=== PATIENT | male | born 1950 | race Caucasian/White ===

== ENCOUNTER 2018-04-22 19:08 | Outpatient (REF) | payer MEDICARE, SELFPAY ==
[2018-04-22 22:29] LABS: Anion Gap 8.9 mmol/L (3-11); BUN 19 mg/dL (7-18); CO2 28.1 mmol/L (21.0-32.0); CREATININE 1.23 mg/dL (0.70-1.30); Calcium 9.2 mg/dL (8.5-10.1); Chloride 104 mmol/L (98-107); Estimated GFR 59.06 (mL/min/1.73m2); Glucose 89 mg/dL (70-100); Sodium 141 mmol/L (136-145)
== END 2018-04-22 19:28 ==
LOC: NCHCN 19:08
PROVIDERS: PCP Internal Medicine; Visit Provider Family Medicine
DX: I10 Essential (primary) hypertension (principal)
CPT/HCPCS: 80048

== ENCOUNTER 2018-05-19 15:10 | Outpatient (REF) | payer MEDICARE, SELFPAY ==
[2018-05-21 11:00] LABS: PSA, Screening 0.2 ng/ml (0-4.5)
== END 2018-05-19 15:30 ==
LOC: NCHCN 15:10
PROVIDERS: PCP Internal Medicine; Visit Provider Family Medicine
DX: Z12.5 Encounter for screening for malignant neoplasm of prostate (principal)
CPT/HCPCS: 84153

== ENCOUNTER 2018-09-22 13:27 | Outpatient (REF) | payer MEDICARE, SELFPAY ==
[2018-09-22 23:25] LABS: ALT 31 U/L (12-78); AST 14 U/L (15-37); Albumin 3.9 g/dL (3.4-5.0); Alkaline Phosphatase 102 U/L (46-116); Anion Gap 10.5 mmol/L (3-11); BUN 16 mg/dL (7-18); Bilirubin, Total 0.5 mg/dL (0.2-1.0); CO2 27.5 mmol/L (21.0-32.0); CREATININE 1.05 mg/dL (0.70-1.30); Calcium 9.3 mg/dL (8.5-10.1); Chloride 104 mmol/L (98-107); Glucose 123 mg/dL (70-100); Potassium 4.4 mmol/L (3.5-5.1); Sodium 142 mmol/L (136-145); TSH (W/Ref FT4) 4.31 uIU/mL (0.358-3.74); Total Protein 7.2 g/dL (6.4-8.2); Vitamin B12 619 pg/mL (193-986)
[2018-09-22 23:49] LABS: FREE T4 1.33 ng/dL (0.76-1.46)
== END 2018-09-22 13:47 ==
LOC: NCHCN 13:27
PROVIDERS: PCP Internal Medicine; Visit Provider Family Medicine
DX: E11.9 Type 2 diabetes mellitus without complications (principal); G62.9 Polyneuropathy, unspecified
CPT/HCPCS: 80053; 82043; 82570; 82607; 84439; 84443

== ENCOUNTER 2018-12-22 09:33 | Outpatient (REF) | payer MEDICARE, SELFPAY ==
[2018-12-22 22:08] LABS: TSH (W/Ref FT4) 1.58 uIU/mL (0.36-3.74)
[2018-12-22 22:09] LABS: Hemoglobin A1C 7.2 % (4.5-6.2)
== END 2018-12-22 09:53 ==
LOC: NCHCN 09:33
PROVIDERS: PCP Family Medicine; Visit Provider Family Medicine
DX: E11.9 Type 2 diabetes mellitus without complications (principal); R94.6 Abnormal results of thyroid function studies
CPT/HCPCS: 83036; 84443

== ENCOUNTER 2019-04-07 14:02 | Outpatient (REF) | payer MEDICARE, SELFPAY ==
[2019-04-07 23:07] LABS: Hemoglobin A1C 7.1 % (3.8-5.6)
== END 2019-04-07 14:22 ==
LOC: NCHCN 14:02
PROVIDERS: PCP Family Medicine; Visit Provider Family Medicine
DX: E11.9 Type 2 diabetes mellitus without complications (principal)
CPT/HCPCS: 83036

== ENCOUNTER 2019-11-11 20:50 | Outpatient (REF) | payer MEDICARE, SELFPAY ==
[2019-11-11 21:13] LABS: Hemoglobin A1C 7.5 % (3.8-5.6)
[2019-11-11 21:35] LABS: ALT 34 U/L (16-63); AST 16 U/L (15-37); Albumin 4.1 g/dL (3.4-5.0); Alkaline Phosphatase 98 U/L (46-116); Anion Gap 11.4 mmol/L (3-11); BUN 22 mg/dL (7-18); Bilirubin, Total 0.5 mg/dL (0.2-1.0); CO2 23.6 mmol/L (21.0-32.0); CREATININE 0.95 mg/dL (0.70-1.30); Calcium 8.9 mg/dL (8.5-10.1); Calculated LDL 84 mg/dL (<100); Chloride 104 mmol/L (98-107); Cholesterol 150 mg/dL (<200); Glucose 163 mg/dL (74-106); HDL Cholesterol 48 mg/dL (40-60); Potassium 4.1 mmol/L (3.5-5.1); Sodium 139 mmol/L (136-145); Total Protein 7.3 g/dL (6.4-8.2); Triglyceride 93 mg/dL (<150)
[2019-11-11 21:45] LABS: COMMENT (LAB VIEW ONLY) 180.69 mg/dL; Microalb ug/mg Crea 6.6 ug/mg Cr
[2019-11-15 08:40] LABS: PSA, Screening 0.4 ng/mL (0.0-4.5)
== END 2019-11-11 21:10 ==
LOC: NCHCN 20:50
PROVIDERS: PCP Family Medicine; Visit Provider Family Medicine
DX: I10 Essential (primary) hypertension (principal); E11.9 Type 2 diabetes mellitus without complications; Z12.5 Encounter for screening for malignant neoplasm of prostate
CPT/HCPCS: 80053; 80061; 84153; 82043; 82570; 83036

== ENCOUNTER 2020-11-24 17:46 | Outpatient (REF) | payer MEDICARE, SELFPAY ==
[2020-11-24 14:49] LABS: ALT 25 U/L (16-63); AST 13 U/L (15-37); Albumin 3.7 g/dL (3.4-5.0); Alkaline Phosphatase 86 U/L (46-116); Anion Gap 5.9 mmol/L (3-11); BUN 19 mg/dL (7-18); Bilirubin, Total 0.5 mg/dL (0.2-1.0); CO2 30.1 mmol/L (21.0-32.0); Calcium 8.3 mg/dL (8.5-10.1); Calculated LDL 75 mg/dL (<100); Chloride 105 mmol/L (98-107); Cholesterol 148 mg/dL (<200); Glucose 134 mg/dL (74-106); HDL Cholesterol 62 mg/dL (40-60); Potassium 4.4 mmol/L (3.5-5.1); Sodium 141 mmol/L (136-145); Total Protein 6.6 g/dL (6.4-8.2); Triglyceride 57 mg/dL (<150)
[2020-11-24 14:54] LABS: Hemoglobin A1C 6.9 % (<5.7)
[2020-11-24 22:07] LABS: PSA, Screening 0.5 ng/mL (0.0-4.5)
== END 2020-11-24 17:47 | disposition home or self-care (01) ==
LOC: NCHCN 17:46
PROVIDERS: PCP Family Medicine; Visit Provider Family Medicine
DX: Z12.5 Encounter for screening for malignant neoplasm of prostate (principal); Z00.00 Encounter for general adult medical examination without abnormal findings; E11.9 Type 2 diabetes mellitus without complications; I10 Essential (primary) hypertension; B35.1 Tinea unguium
CPT/HCPCS: 80053; 80061; 84153; 83036

== ENCOUNTER 2020-11-30 11:57 | Outpatient (REF) | payer MEDICARE, SELFPAY ==
[2020-11-30 17:22] LABS: COMMENT (LAB VIEW ONLY) 42.37 mg/dL; Microalb ug/mg Crea 7.6 ug/mg Cr
== END 2020-11-30 11:58 | disposition home or self-care (01) ==
LOC: NCHCN 11:57
PROVIDERS: PCP Family Medicine; Visit Provider Family Medicine
DX: E11.9 Type 2 diabetes mellitus without complications (principal)
CPT/HCPCS: 82043; 82570

== ENCOUNTER 2022-01-01 09:03 | Outpatient (REF) | payer MEDICARE, SELFPAY ==
[2022-01-01 15:18] LABS: ALT 19 U/L (16-63); AST 23 U/L (15-37); Albumin 3.8 g/dL (3.4-5.0); Alkaline Phosphatase 72 U/L (46-116); Anion Gap 7.7 mmol/L (3-11); BUN 27 mg/dL (7-18); Bilirubin, Total 0.6 mg/dL (0.2-1.0); CO2 26.3 mmol/L (21.0-32.0); CREATININE 1.1 mg/dL (0.70-1.30); Calcium 8.7 mg/dL (8.5-10.1); Calculated LDL 90 mg/dL (<100); Chloride 104 mmol/L (98-107); Cholesterol 162 mg/dL (<200); Estimated GFR 72.67 (mL/min/1.73m2); Glucose 141 mg/dL (74-106); HDL Cholesterol 58 mg/dL (40-60); Potassium 4.4 mmol/L (3.5-5.1); Sodium 138 mmol/L (136-145); Total Protein 7.3 g/dL (6.4-8.2); Triglyceride 74 mg/dL (<150)
[2022-01-01 16:01] LABS: Hemoglobin A1C 7.4 % (<5.7)
[2022-01-01 22:39] LABS: PSA, Screening 0.2 ng/mL (<=4.5)
== END 2022-01-01 09:04 | disposition home or self-care (01) ==
LOC: NCHCN 09:03
PROVIDERS: PCP Family Medicine; Visit Provider Family Medicine
DX: I10 Essential (primary) hypertension (principal); E11.9 Type 2 diabetes mellitus without complications; Z12.5 Encounter for screening for malignant neoplasm of prostate
CPT/HCPCS: 80053; 80061; 84153; 83036

== ENCOUNTER 2022-07-25 12:56 | Outpatient (REF) | payer MEDICARE, SELFPAY ==
[2022-07-25 18:22] LABS: COMMENT (LAB VIEW ONLY) 82.91 mg/dL; Microalb ug/mg Crea 4.7 ug/mg Cr
== END 2022-07-25 12:57 | disposition home or self-care (01) ==
LOC: NCHCN 12:56
PROVIDERS: PCP Family Medicine; Visit Provider Family Medicine
DX: E11.9 Type 2 diabetes mellitus without complications (principal); I10 Essential (primary) hypertension
CPT/HCPCS: 82043; 82570

== ENCOUNTER 2023-07-23 11:22 | Outpatient (REF) | payer MEDICARE, SELFPAY ==
[2023-07-23 15:30] LABS: ALT 26 U/L (16-63); AST 17 U/L (15-37); Albumin 4.2 g/dL (3.4-5.0); Alkaline Phosphatase 88 U/L (46-116); BUN 27 mg/dL (7-18); Bilirubin, Total 0.5 mg/dL (0.2-1.0); CREATININE 1.2 mg/dL (0.70-1.30); Calcium 9.2 mg/dL (8.5-10.1); Calculated LDL 101 mg/dL (<100); Chloride 102 mmol/L (98-107); Cholesterol 177 mg/dL (<200); Estimated GFR 65.06 (mL/min/1.73m2); Glucose 125 mg/dL (74-106); HDL Cholesterol 68 mg/dL (40-60); Potassium 4.4 mmol/L (3.5-5.1); Sodium 138 mmol/L (136-145); Total Protein 7.3 g/dL (6.4-8.2); Triglyceride 44 mg/dL (<150)
[2023-07-23 23:33] LABS: PSA, Screening 0.3 ng/mL (<=6.5)
== END 2023-07-23 11:23 | disposition home or self-care (01) ==
LOC: NCHCN 11:22
PROVIDERS: PCP Family Medicine; Visit Provider Family Medicine
DX: E11.9 Type 2 diabetes mellitus without complications (principal); I10 Essential (primary) hypertension; Z12.5 Encounter for screening for malignant neoplasm of prostate
CPT/HCPCS: 80053; 80061; 84153

== ENCOUNTER 2023-11-25 15:41 | Outpatient (REF) | payer MEDICARE, SELFPAY ==
[2023-11-25 16:06] LABS: COMMENT (LAB VIEW ONLY) 35.01 mg/dL; Microalb ug/mg Crea 11.7 ug/mg Cr
== END 2023-11-25 15:42 | disposition home or self-care (01) ==
LOC: NCHCN 15:41
PROVIDERS: PCP Family Medicine; Visit Provider Family Medicine
DX: E11.9 Type 2 diabetes mellitus without complications (principal)
CPT/HCPCS: 82043; 82570

== ENCOUNTER 2024-07-23 10:08 | Outpatient (REF) | payer MEDICARE, SELFPAY ==
[2024-07-23 15:24] LABS: Hemoglobin A1C 8.1 % (<5.7)
[2024-07-23 15:51] LABS: ALT 28 U/L (16-63); AST 28 U/L (15-37); Albumin 4.5 g/dL (3.4-5.0); Alkaline Phosphatase 104 U/L (46-116); Anion Gap 9.3 mmol/L (3-11); BUN 27 mg/dL (7-18); Bilirubin, Total 0.6 mg/dL (0.2-1.0); CO2 28.7 mmol/L (21.0-32.0); CREATININE 1.2 mg/dL (0.70-1.30); Calcium 9.3 mg/dL (8.5-10.1); Calculated LDL 96 mg/dL (<100); Chloride 102 mmol/L (98-107); Cholesterol 174 mg/dL (<200); Estimated GFR 64.65 (mL/min/1.73m2); Glucose 154 mg/dL (74-106); HDL Cholesterol 60 mg/dL (>or=40); Potassium 4.1 mmol/L (3.5-5.1); Sodium 140 mmol/L (136-145); Total Protein 8.3 g/dL (6.4-8.2); Triglyceride 94 mg/dL (<150)
[2024-07-23 22:38] LABS: PSA, Screening 0.2 ng/mL (<=6.5)
== END 2024-07-23 10:09 | disposition home or self-care (01) ==
LOC: NCHCN 10:08
PROVIDERS: PCP Family Medicine; Visit Provider Family Medicine
DX: E11.9 Type 2 diabetes mellitus without complications (principal); Z12.5 Encounter for screening for malignant neoplasm of prostate
CPT/HCPCS: 80053; 80061; 84153; 83036